=== PATIENT | male | born 1960 | race Caucasian/White ===

== ENCOUNTER 2016-08-31 10:20 | Emergency (ER) | payer OTHER ==
[2016-08-31 10:24] VITALS: TEMP 36.5; Ht 182.9 cm
[2016-08-31] MEDS ORDERED: DILT120C41 PO (10:41)
[2016-08-31] MEDS ORDERED: ESCI1TAB6 PO (10:43)
[2016-08-31] MEDS ORDERED: MELA3TAB PO (10:43)
[2016-08-31] MEDS ORDERED: PRLSR20 PO (10:43)
[2016-08-31] MEDS ORDERED: ASPCH81X PO (10:43)
[2016-08-31] MEDS ORDERED: SODIUM CHLORIDE 0.9% 1000ML 1,000 ML IV STA (10:51)
[2016-08-31 11:45] LABS: URINE APPEARANCE CLOUDY (CLEAR); URINE BILIRUBIN NEG (NEG); URINE COLOR YELLOW; URINE EPITHELIAL CELL AUTO 0-5 /lpf (0-5); URINE NITRITE NEG (NEG); URINE SPECIFIC GRAVITY 1.009 (1.000-1.030); UROBILINOGEN NEG (NEG); ZZUR CULT IF INDIC CLEAN CATCH NO
[2016-08-31 11:52] LABS: MANUAL MICROSCOPIC REQUIRED? NO; REVIEW REQ? NO
[2016-08-31 11:59] LABS: ALT/SGPT 26 U/L (12-78); BLOOD UREA NITROGEN 26 mg/dl (7-18); BUN/CREATININE RATIO 21.5 (10-20); CALCIUM 9.5 mg/dl (8.5-10.1); CARBON DIOXIDE 24 mmol/L (21-32); CHLORIDE 107 mmol/L (98-107); GLUCOSE 98 mg/dl (70-99); POTASSIUM 3.7 mmol/L (3.5-5.1); SODIUM 142 mmol/L (136-145)
[2016-08-31 12:06] LABS: BASO % 0.3 %; BASO ABS # 0.02 K/uL (0-0.2); COMPLETE YES; EOS % 1.3 %; HEMATOCRIT 38.8 % (42-52); IG% 0.2 %; LYMPH % 14.1 %; LYMPH ABS # 0.84 K/uL (1.2-3.4); MEAN CELL VOLUME 89.8 fL (80-100); MEAN CORPUSCULAR HEMOGLOBIN 33.1 pg (25-34); MEAN CORPUSCULAR HGB CONC 36.9 g/dl (32-36); MONO % 7.9 %; NEUT % 76.2 %; PLATELET COUNT 115 K/uL (130-400); PLT ESTIMATE DECREASED; RED BLOOD COUNT 4.32 M/uL (4.7-6.1); WHITE BLOOD COUNT 5.94 K/uL (4.8-10.8)
[2016-08-31 12:10] LABS: ALB/GLOB RATIO 1.4 (0.9-2); ALKALINE PHOSPHATASE 76 U/L (45-117); AST/SGOT 19 U/L (15-37)
[2016-08-31 12:42] LABS: LYME DISEASE AB IGG NEG (NEG); LYME DISEASE AB IGM NEG (NEG)
--- NOTE | 2016-08-31 14:10 | DIAGNOSTIC IMAGING REPORT ---
CT OF THE CHEST WITHOUT IV CONTRAST CLINICAL HISTORY: Cough. Weight loss. Weakness. COMPARISON STUDY: No previous studies for comparison. CT DOSE: 265.83 mGycm TECHNIQUE: Axial images of the chest were obtained without IV contrast. Images were reviewed in the axial, sagittal, and coronal planes. IV contrast was not administered for this examination. FINDINGS: No enlarged axillary, mediastinal or hilar lymph nodes are present. The size of the heart is normal. There is no pericardial effusion. The central airways are patent. There is no pneumothorax or pleural effusion. There are extensive tree-in-bud nodular densities throughout both lungs. Multifocal scarring is noted, most pronounced within the right apex and the lingula. No suspicious osseous lesions are present. The abdomen and pelvis will be reported separately. IMPRESSION: 1. Extensive multifocal tree-in-bud nodules throughout both lungs. The findings suggest an infectious or inflammatory etiology. An atypical mycobacterial infection could have this imaging appearance. 2. No thoracic lymphadenopathy. 3. Multifocal scarring within the lung. Electronically signed by: Low Vadlez M.D. 08/31/2016 2:07 PM Dictated Date/Time: 08/31/2016 1:58 PM
--- NOTE | 2016-08-31 14:14 | DIAGNOSTIC IMAGING REPORT ---
ABDOMEN AND PELVIS CT WITH ORAL CONTRAST CT DOSE: 979.77 mGycm HISTORY: Generalized abdominal pain. TECHNIQUE: Multiaxial CT images of the abdomen and pelvis were performed following the use of oral contrast. COMPARISON STUDY: None. FINDINGS: There are tree-in-bud nodular opacities at the lung bases. No pneumoperitoneum. No pneumatosis. No suspicious lytic or blastic osseous lesions. There is a small gallstone. No gallbladder wall thickening. The unenhanced liver, spleen, pancreas, and adrenal glands are within normal limits. Suspect punctate bilateral renal calculi. No hydronephrosis. No retroperitoneal lymphadenopathy. The bladder is unremarkable. No bowel wall thickening or obstruction. The appendix is reportedly surgically absent. IMPRESSION: 1. No bowel wall thickening or obstruction. 2. Cholelithiasis. 3. Suspect bilateral nephrolithiasis. No hydronephrosis. 4. Tree-in-bud nodular opacities seen at the lung bases. Electronically signed by: Syed Faulkner M.D. 08/31/2016 2:12 PM Dictated Date/Time: 08/31/2016 2:05 PM
--- NOTE | 2016-08-31 15:22 | EMERGENCY ROOM VISIT NOTE ---
History Report prepared by Benito: Gale Piper Under the Supervision of: Dr. Nelson Moran M.D. First contact with patient: 10:43 Chief Complaint: RECTAL PAIN Stated Complaint: WEAKNESS, BURNING GROIN Nursing Triage Summary: Pt c/o burning sensation in "butt and groin, for months, it just flares up sometimes." This time began 2 hours ago. Denies n/v/d. Denies blood in stool today. Pt states he is to have a CT done here today at noon for same symptoms but feels weak so came to ER. Has had rectal pain in past, but none recently. History of Present Illness The patient is a 56 year old male who presents to the Emergency Room with complaints of persistent burning penile and pelvic discomfort starting a few days ago. The patient also complains of diffuse abdominal pain which he describes to be a burning pain. He also reports generalized weakness. He notes a symptom intensity of 8/10. He has a history of similar symptoms occurring a few months ago. He denies nausea, vomiting, diarrhea, rectal bleeding, or any other complaints. He is supposed to have a CT scan today for concerns about generalized body aches and weight loss. He has lost about 20 pounds in the past few weeks. He used to spend a lot of time outside but has not been checked for Lyme's disease. Source of History: patient Onset: a few days ago Position: other (penis) Symptom Intensity: 8/10 Quality: burning Timing: other (persistent) Associated Symptoms: + abdominal pain, + weakness, No diarrhea, No nausea, No vomiting Review of Systems See HPI for pertinent positives & negatives. A total of 10 systems reviewed and were otherwise negative. Past Medical & Surgical Medical Problems: (1) Kidney disease Family History Cancer Social History Smoking Status: Former Smoker Marital Status: Occupation Status: disabled Current/Historical Medications Scheduled Aspirin (Aspirin Chewable), 81 MG PO DAILY Diltiazem Hcl (Dilt-Xr), 120 MG PO QAM Escitalopram Oxalate (Lexapro), 5 MG PO QAM Melatonin (Melatonin), 3 MG PO HS Omeprazole (Prilosec), 20 MG PO QAM Allergies Coded Allergies: Amoxicillin (Unverified Allergy, Unknown, GI UPSET, 08/31/16) CI Pigment Blue 63 (Unverified Allergy, Unknown, SHAKES/TREMORS, 08/31/16) Clavulanic Acid (Unverified Allergy, Unknown, GI UPSET, 08/31/16) Dabigatran (Unverified Allergy, Unknown, SHAKES/TREMORS, 08/31/16) Gabapentin (Unverified Allergy, Unknown, TOOK HEART OUT OF RHYTHM, 08/31/16 ) Iodinated Diagnostic Agents (Unverified Allergy, Unknown, BODY RASH, ) Lisinopril (Unverified Allergy, Unknown, KIDNEY ISSUES, 08/31/16) Olanzapine (Unverified Allergy, Unknown, SHAKES/TREMORS, 08/31/16) Rivaroxaban (Unverified Allergy, Unknown, BODY SHAKES/TREMORS, 08/31/16) Sertraline (Unverified Allergy, Unknown, BODY SHAKES/TREMORS, 08/31/16) Yellow Dye (Unverified Allergy, Unknown, SHAKES/TREMORS, 08/31/16) Zolpidem (Unverified Allergy, Unknown, PULSE RATE INCREASED, 08/31/16) Uncoded Allergies: ELIQUIS (Allergy, Unknown, BODY SHAKES/TREMORS, 08/31/16) Physical Exam Vital Signs Date Time Temp Pulse Resp B/P Pulse Ox O2 Delivery O2 Flow Rate FiO2 08/31/16 15:23 64 20 153/80 98 Room Air 08/31/16 14:35 61 16 154/83 08/31/16 13:45 60 20 155/79 98 Room Air 08/31/16 12:15 62 20 132/75 100 Room Air 08/31/16 11:31 Room Air 08/31/16 11:23 64 12 149/83 100 Room Air 70 152/86 79 128/72 08/31/16 11:08 61 08/31/16 10:24 36.5 62 16 144/77 99 Room Air Physical Exam GENERAL: Patient is in no acute distress. HEENT: No acute trauma, normocephalic atraumatic, mucous membranes moist, no nasal congestion, no scleral icterus. NECK: No stridor, no adenopathy, no meningismus, trachea is midline. LUNGS: Clear to auscultation bilaterally, no wheeze, no rhonchi, breath sounds equal. HEART: Without murmurs gallops or rubs, regular rate and rhythm. ABDOMEN: Soft, nontender, bowel sounds positive, no hernias, no peritonitis. : Circumcised. Testicles and scrotum appeared normal. No cellulitis or hernia appreciated. EXTREMITIES: No cyanosis or edema, full range of motion of all the joints without pain or difficulty, no signs for acute trauma. NEUROLOGIC: Oriented x 3, no acute motor or sensory deficits, no focal weakness. SKIN: No rash, no jaundice, no diaphoresis. Medical Decision & Procedures ER Provider Diagnostic Interpretation: CT results as stated below per my review and radiologist interpretation: ABDOMEN AND PELVIS CT WITH ORAL CONTRAST CT DOSE: 979.77 mGycm HISTORY: Generalized abdominal pain. TECHNIQUE: Multiaxial CT images of the abdomen and pelvis were performed following the use of oral contrast. COMPARISON STUDY: None. FINDINGS: There are tree-in-bud nodular opacities at the lung bases. No pneumoperitoneum. No pneumatosis. No suspicious lytic or blastic osseous lesions. There is a small gallstone. No gallbladder wall thickening. The unenhanced liver, spleen, pancreas, and adrenal glands are within normal limits. Suspect punctate bilateral renal calculi. No hydronephrosis. No retroperitoneal lymphadenopathy. The bladder is unremarkable. No bowel wall thickening or obstruction. The appendix is reportedly surgically absent. IMPRESSION: 1. No bowel wall thickening or obstruction. 2. Cholelithiasis. 3. Suspect bilateral nephrolithiasis. No hydronephrosis. 4. Tree-in-bud nodular opacities seen at the lung bases. Electronically signed by: Syed Faulkner M.D. 08/31/2016 2:12 PM Dictated Date/Time: 08/31/2016 2:[address] OF THE CHEST WITHOUT IV CONTRAST CLINICAL HISTORY: Cough. Weight loss. Weakness. COMPARISON STUDY: No previous studies for comparison. CT DOSE: 265.83 mGycm TECHNIQUE: Axial images of the chest were obtained without IV contrast. Images were reviewed in the axial, sagittal, and coronal planes. IV contrast was not administered for this examination. FINDINGS: No enlarged axillary, mediastinal or hilar lymph nodes are present. The size of the heart is normal. There is no pericardial effusion. The central airways are patent. There is no pneumothorax or pleural effusion. There are extensive tree-in-bud nodular densities throughout both lungs. Multifocal scarring is noted, most pronounced within the right apex and the lingula. No suspicious osseous lesions are present. The abdomen and pelvis will be reported separately. IMPRESSION: 1. Extensive multifocal tree-in-bud nodules throughout both lungs. The findings suggest an infectious or inflammatory etiology. An atypical mycobacterial infection could have this imaging appearance. 2. No thoracic lymphadenopathy. 3. Multifocal scarring within the lung. Electronically signed by: Low Valdez M.D. 08/31/2016 2:07 PM Dictated Date/Time: 08/31/2016 1:58 PM Laboratory Results 08/31/16 11:15 Red Blood Count 4.32, Mean Corpuscular Volume 89.8, Mean Corpuscular Hemoglobin 33.1, Mean Corpuscular Hemoglobin Concent 36.9, Neutrophils (%) (Auto) 76.2, Lymphocytes (%) (Auto) 14.1, Monocytes (%) (Auto) 7.9, Eosinophils (%) (Auto) 1.3, Basophils (%) (Auto) 0.3, Neutrophils # (Auto) 4.52, Lymphocytes # (Auto) 0.84, Monocytes # (Auto) 0.47, Eosinophils # (Auto) 0.08, Basophils # (Auto) 0.02 08/31/16 11:15 Test 08/31/16 11:15 White Blood Count 5.94 K/uL (4.8-10.8) Red Blood Count 4.32 M/uL (4.7-6.1) Hemoglobin 14.3 g/dL (14.0-18.0) Hematocrit 38.8 % (42-52) Mean Corpuscular Volume 89.8 fL (80-100) Mean Corpuscular Hemoglobin 33.1 pg (25-34) Mean Corpuscular Hemoglobin Concent 36.9 g/dl (32-36) Platelet Count 115 K/uL (130-400) Neutrophils (%) (Auto) 76.2 % Lymphocytes (%) (Auto) 14.1 % Monocytes (%) (Auto) 7.9 % Eosinophils (%) (Auto) 1.3 % Basophils (%) (Auto) 0.3 % Neutrophils # (Auto) 4.52 K/uL (1.4-6.5) Lymphocytes # (Auto) 0.84 K/uL (1.2-3.4) Monocytes # (Auto) 0.47 K/uL (0.11-0.59) Eosinophils # (Auto) 0.08 K/uL (0-0.5) Basophils # (Auto) 0.02 K/uL (0-0.2) Immature Granulocyte % (Auto) 0.2 % Immature Granulocyte # (Auto) 0.01 K/uL (0.00-0.02) Platelet Estimate DECREASED Urine Color YELLOW Urine Appearance CLOUDY (CLEAR) Urine pH 5.0 (4.5-7.5) Urine Specific [place] 1.009 (1.000-1.030) Urine Protein NEG (NEG) Urine Glucose (UA) NEG (NEG) Urine Ketones TRACE (NEG) Urine Occult Blood NEG (NEG) Urine Nitrite NEG (NEG) Urine Bilirubin NEG (NEG) Urine Urobilinogen NEG (NEG) Urine Leukocyte Esterase NEG (NEG) Urine WBC (Auto) 0 /hpf (0-5) Urine RBC (Auto) 0-4 /hpf (0-4) Urine Hyaline Casts (Auto) 1-5 /lpf (0-5) Urine Epithelial Cells (Auto) 0-5 /lpf (0-5) Urine Bacteria (Auto) NEG (NEG) Anion Gap 11.0 mmol/L (3-11) Estimated GFR () 77.3 Estimated GFR (Non- 66.7 BUN/Creatinine Ratio 21.5 (10-20) Calcium Level 9.5 mg/dl (8.5-10.1) Total Bilirubin 0.6 mg/dl (0.2-1) Aspartate Amino Transf (AST/SGOT) 19 U/L (15-37) Alanine Aminotransferase (ALT/SGPT) 26 U/L (12-78) Alkaline Phosphatase 76 U/L (45-117) Total Creatine Kinase 124 U/L (39-308) Troponin I < 0.015 ng/ml (0-0.045) Total Protein 7.7 gm/dl (6.4-8.2) Albumin 4.5 gm/dl (3.4-5.0) Globulin 3.2 gm/dl (2.5-4.0) Albumin/Globulin Ratio 1.4 (0.9-2) Thyroid Stimulating Hormone (TSH) 1.640 uIu/ml (0.300-4.500) Lyme Disease IgG Antibody NEG (NEG) Lyme Disease IgM Antibody NEG (NEG) Laboratory results reviewed by me. Medications Administered Medications (Trade) Dose Ordered Sig/Nery Route Start Time Stop Time Status Last Admin Dose Admin Sodium Chloride (Nss 1000ml) 1,000 ml @ 999 mls/hr Q1H1M STAT IV 08/31/16 10:51 08/31/16 11:51 DC 08/31/16 11:31 999 MLS/HR ECG Indication: abdominal pain Rate (beats per minute): 63 Rhythm: normal sinus, SVT Findings: no acute ischemic change, no ectopy ED Course 1043: The patient was evaluated in room C10. A complete history and physical exam was performed. 1051: Sodium Chloride 1000 ml @ 999 mls/hr IV 1205: Orthostatic vitals are positive. 1425: I discussed the patient's case with Dr. Whalen, cost specialist with [facility]. He will evaluate the patient and give me his recommendations. 1458: Dr. Whalen recommended discharging him home with follow up. 1503: Reevaluated the patient. Discussed results and discharge instructions: He verbalized understanding and agreement. The patient is ready for discharge. Medical Decision Differential diagnosis includes but is not limited to malignancy, anemia, electrolyte imbalance, renal failure, UTI, thyroid disorder, lyme disease. Consults Time Called: 1420 Consulting Physician: Dr. Whalen, cost specialist with [facility] Returned Call: [phone] I discussed the patient's case with Dr. Whalen, cost specialist with [facility]. He will evaluate the patient and give me his recommendations. Impression Primary Impression: Lower abdominal pain Additional Impressions: Weight loss Weakness Dehydration Scribe Attestation The scribe's documentation has been prepared under my direction and personally reviewed by me in its entirety. I confirm that the note above accurately reflects all work, treatment, procedures, and medical decision making performed by me. Departure Information Dispostion Home / Self-Care Referrals No Doctor, Assigned (PCP) Forms HOME CARE DOCUMENTATION FORM, IMPORTANT VISIT INFORMATION, WORK / SCHOOL INSTRUCTIONS Patient Instructions My [facility] Additional Instructions follow up as an outpt with Dr. Palomino and Dr. Whalen follow with your [facility] lab testing today was all ok stay well hydrated return if worsening Problem Qualifiers
[2016-08-31 15:23] VITALS: BP 153/80; PULSE 64; O2SAT 98
--- NOTE | 2016-08-31 16:54 | EMERGENCY ROOM VISIT NOTE ---
History Report prepared by Benito: Gale Piper Under the Supervision of: Dr. Nelson Moran M.D. First contact with patient: 10:43 Chief Complaint: RECTAL PAIN Stated Complaint: WEAKNESS, BURNING GROIN Nursing Triage Summary: Pt c/o burning sensation in "butt and groin, for months, it just flares up sometimes." This time began 2 hours ago. Denies n/v/d. Denies blood in stool today. Pt states he is to have a CT done here today at noon for same symptoms but feels weak so came to ER. Has had rectal pain in past, but none recently. History of Present Illness The patient is a 56 year old male who presents to the Emergency Room with complaints of persistent bilateral groin discomfort starting about 3-4 days ago. About 3-4 months ago, he started having intermittent penile discomfort which resolved. A few days ago, he started having similar penile discomfort again. He also complains of diffuse abdominal pain radiating to his bilateral flank area. He also reports weakness. Last week, he had some trouble with urination which has resolved. He denies fevers, chills, cough, problems with bowel movement, or any other complaints. He denies any personal history of cancer. He has been having issues with kidney function for the past year. The patient is supposed to receive a CT scan today due to concerns about weight loss. He has lost about 15-20 pounds in the past few months. The patient used to spend a lot of time outside. He has not been checked for Lyme's disease. Source of History: patient Onset: about 3-4 days ago Position: other (bilateral groin) Timing: other (persistent) Associated Symptoms: + abdominal pain, + weakness, No chills, No cough, No fevers Review of Systems See HPI for pertinent positives & negatives. A total of 10 systems reviewed and were otherwise negative. Past Medical & Surgical Medical Problems: (1) Kidney disease Family History Cancer Social History Smoking Status: Former Smoker Marital Status: Occupation Status: disabled Current/Historical Medications Scheduled Aspirin (Aspirin Chewable), 81 MG PO DAILY Diltiazem Hcl (Dilt-Xr), 120 MG PO QAM Escitalopram Oxalate (Lexapro), 5 MG PO QAM Melatonin (Melatonin), 3 MG PO HS Omeprazole (Prilosec), 20 MG PO QAM Allergies Coded Allergies: Amoxicillin (Unverified Allergy, Unknown, GI UPSET, 08/31/16) CI Pigment Blue 63 (Unverified Allergy, Unknown, SHAKES/TREMORS, 08/31/16) Clavulanic Acid (Unverified Allergy, Unknown, GI UPSET, 08/31/16) Dabigatran (Unverified Allergy, Unknown, SHAKES/TREMORS, 08/31/16) Gabapentin (Unverified Allergy, Unknown, TOOK HEART OUT OF RHYTHM, 08/31/16 ) Iodinated Diagnostic Agents (Unverified Allergy, Unknown, BODY RASH, ) Lisinopril (Unverified Allergy, Unknown, KIDNEY ISSUES, 08/31/16) Olanzapine (Unverified Allergy, Unknown, SHAKES/TREMORS, 08/31/16) Rivaroxaban (Unverified Allergy, Unknown, BODY SHAKES/TREMORS, 08/31/16) Sertraline (Unverified Allergy, Unknown, BODY SHAKES/TREMORS, 08/31/16) Yellow Dye (Unverified Allergy, Unknown, SHAKES/TREMORS, 08/31/16) Zolpidem (Unverified Allergy, Unknown, PULSE RATE INCREASED, 08/31/16) Uncoded Allergies: ELIQUIS (Allergy, Unknown, BODY SHAKES/TREMORS, 08/31/16) Physical Exam Vital Signs Date Time Temp Pulse Resp B/P Pulse Ox O2 Delivery O2 Flow Rate FiO2 08/31/16 15:23 64 20 153/80 98 Room Air 08/31/16 14:35 61 16 154/83 08/31/16 13:45 60 20 155/79 98 Room Air 08/31/16 12:15 62 20 132/75 100 Room Air 08/31/16 11:31 Room Air 08/31/16 11:23 64 12 149/83 100 Room Air 70 152/86 79 128/72 08/31/16 11:08 61 08/31/16 10:24 36.5 62 16 144/77 99 Room Air Physical Exam GENERAL: Patient is in no acute distress. HEENT: No acute trauma, normocephalic atraumatic, mucous membranes moist, no nasal congestion, no scleral icterus. NECK: No stridor, no adenopathy, no meningismus, trachea is midline. LUNGS: Clear to auscultation bilaterally, no wheeze, no rhonchi, breath sounds equal. HEART: Without murmurs gallops or rubs, regular rate and rhythm. ABDOMEN: Soft, nontender, bowel sounds positive, no hernias, no peritonitis. GROIN: Circumcised, normal penis and testicles on exam, no obvious hernia. EXTREMITIES: No cyanosis or edema, full range of motion of all the joints without pain or difficulty, no signs for acute trauma. NEUROLOGIC: Oriented x 3, no acute motor or sensory deficits, no focal weakness. SKIN: No rash, no jaundice, no diaphoresis. Medical Decision & Procedures ER Provider Diagnostic Interpretation: CT results as stated below per my review and radiologist interpretation: ABDOMEN AND PELVIS CT WITH ORAL CONTRAST CT DOSE: 979.77 mGycm HISTORY: Generalized abdominal pain. TECHNIQUE: Multiaxial CT images of the abdomen and pelvis were performed following the use of oral contrast. COMPARISON STUDY: None. FINDINGS: There are tree-in-bud nodular opacities at the lung bases. No pneumoperitoneum. No pneumatosis. No suspicious lytic or blastic osseous lesions. There is a small gallstone. No gallbladder wall thickening. The unenhanced liver, spleen, pancreas, and adrenal glands are within normal limits. Suspect punctate bilateral renal calculi. No hydronephrosis. No retroperitoneal lymphadenopathy. The bladder is unremarkable. No bowel wall thickening or obstruction. The appendix is reportedly surgically absent. IMPRESSION: 1. No bowel wall thickening or obstruction. 2. Cholelithiasis. 3. Suspect bilateral nephrolithiasis. No hydronephrosis. 4. Tree-in-bud nodular opacities seen at the lung bases. Electronically signed by: Syed Faulkner M.D. 08/31/2016 2:12 PM Dictated Date/Time: 08/31/2016 2:[address] OF THE CHEST WITHOUT IV CONTRAST CLINICAL HISTORY: Cough. Weight loss. Weakness. COMPARISON STUDY: No previous studies for comparison. CT DOSE: 265.83 mGycm TECHNIQUE: Axial images of the chest were obtained without IV contrast. Images were reviewed in the axial, sagittal, and coronal planes. IV contrast was not administered for this examination. FINDINGS: No enlarged axillary, mediastinal or hilar lymph nodes are present. The size of the heart is normal. There is no pericardial effusion. The central airways are patent. There is no pneumothorax or pleural effusion. There are extensive tree-in-bud nodular densities throughout both lungs. Multifocal scarring is noted, most pronounced within the right apex and the lingula. No suspicious osseous lesions are present. The abdomen and pelvis will be reported separately. IMPRESSION: 1. Extensive multifocal tree-in-bud nodules throughout both lungs. The findings suggest an infectious or inflammatory etiology. An atypical mycobacterial infection could have this imaging appearance. 2. No thoracic lymphadenopathy. 3. Multifocal scarring within the lung. Electronically signed by: Low Valdez M.D. 08/31/2016 2:07 PM Dictated Date/Time: 08/31/2016 1:58 PM Laboratory Results 08/31/16 11:15 Red Blood Count 4.32, Mean Corpuscular Volume 89.8, Mean Corpuscular Hemoglobin 33.1, Mean Corpuscular Hemoglobin Concent 36.9, Neutrophils (%) (Auto) 76.2, Lymphocytes (%) (Auto) 14.1, Monocytes (%) (Auto) 7.9, Eosinophils (%) (Auto) 1.3, Basophils (%) (Auto) 0.3, Neutrophils # (Auto) 4.52, Lymphocytes # (Auto) 0.84, Monocytes # (Auto) 0.47, Eosinophils # (Auto) 0.08, Basophils # (Auto) 0.02 08/31/16 11:15 Test 08/31/16 11:15 White Blood Count 5.94 K/uL (4.8-10.8) Red Blood Count 4.32 M/uL (4.7-6.1) Hemoglobin 14.3 g/dL (14.0-18.0) Hematocrit 38.8 % (42-52) Mean Corpuscular Volume 89.8 fL (80-100) Mean Corpuscular Hemoglobin 33.1 pg (25-34) Mean Corpuscular Hemoglobin Concent 36.9 g/dl (32-36) Platelet Count 115 K/uL (130-400) Neutrophils (%) (Auto) 76.2 % Lymphocytes (%) (Auto) 14.1 % Monocytes (%) (Auto) 7.9 % Eosinophils (%) (Auto) 1.3 % Basophils (%) (Auto) 0.3 % Neutrophils # (Auto) 4.52 K/uL (1.4-6.5) Lymphocytes # (Auto) 0.84 K/uL (1.2-3.4) Monocytes # (Auto) 0.47 K/uL (0.11-0.59) Eosinophils # (Auto) 0.08 K/uL (0-0.5) Basophils # (Auto) 0.02 K/uL (0-0.2) Immature Granulocyte % (Auto) 0.2 % Immature Granulocyte # (Auto) 0.01 K/uL (0.00-0.02) Platelet Estimate DECREASED Urine Color YELLOW Urine Appearance CLOUDY (CLEAR) Urine pH 5.0 (4.5-7.5) Urine Specific [place] 1.009 (1.000-1.030) Urine Protein NEG (NEG) Urine Glucose (UA) NEG (NEG) Urine Ketones TRACE (NEG) Urine Occult Blood NEG (NEG) Urine Nitrite NEG (NEG) Urine Bilirubin NEG (NEG) Urine Urobilinogen NEG (NEG) Urine Leukocyte Esterase NEG (NEG) Urine WBC (Auto) 0 /hpf (0-5) Urine RBC (Auto) 0-4 /hpf (0-4) Urine Hyaline Casts (Auto) 1-5 /lpf (0-5) Urine Epithelial Cells (Auto) 0-5 /lpf (0-5) Urine Bacteria (Auto) NEG (NEG) Anion Gap 11.0 mmol/L (3-11) Estimated GFR () 77.3 Estimated GFR (Non- 66.7 BUN/Creatinine Ratio 21.5 (10-20) Calcium Level 9.5 mg/dl (8.5-10.1) Total Bilirubin 0.6 mg/dl (0.2-1) Aspartate Amino Transf (AST/SGOT) 19 U/L (15-37) Alanine Aminotransferase (ALT/SGPT) 26 U/L (12-78) Alkaline Phosphatase 76 U/L (45-117) Total Creatine Kinase 124 U/L (39-308) Troponin I < 0.015 ng/ml (0-0.045) Total Protein 7.7 gm/dl (6.4-8.2) Albumin 4.5 gm/dl (3.4-5.0) Globulin 3.2 gm/dl (2.5-4.0) Albumin/Globulin Ratio 1.4 (0.9-2) Thyroid Stimulating Hormone (TSH) 1.640 uIu/ml (0.300-4.500) Lyme Disease IgG Antibody NEG (NEG) Lyme Disease IgM Antibody NEG (NEG) Laboratory results reviewed by me. Medications Administered Medications (Trade) Dose Ordered Sig/Nery Route Start Time Stop Time Status Last Admin Dose Admin Sodium Chloride (Nss 1000ml) 1,000 ml @ 999 mls/hr Q1H1M STAT IV 08/31/16 10:51 08/31/16 11:51 DC 08/31/16 11:31 999 MLS/HR ECG Indication: abdominal pain Rate (beats per minute): 63 Rhythm: normal sinus Findings: no acute ischemic change, no ectopy ED Course 1043: The patient was evaluated in room C10. A complete history and physical exam was performed. 1051: Sodium Chloride 1000 ml @ 999 mls/hr IV 1205: Orthostatic vitals are positive. 1425: I discussed the patient's case with Dr. Whalen, plate straightener with [facility]. He will evaluate the patient and give me his recommendations. 1458: Dr. Whalen recommended discharging him home with follow up. 1503: Reevaluated the patient. Discussed results and discharge instructions: He verbalized understanding and agreement. The patient is ready for discharge. Medical Decision Differential diagnosis includes but is not limited to viral illness, malignancy , lyme's disease, anemia, electrolyte imbalance, thyroid disorder, diverticulitis, UTI, hernia. There is no leukocytosis or concerning anemia. No significant electrolyte abnormality, kidney failure, hepatitis or pancreatitis. The patient appears to be in a euthyroid state. Urinalysis does not show infection. Lyme disease testing is negative. Chest CT shows a diffuse nodular pattern consistent with possible infection versus even TB. Follow up with pulmonology was suggested. Abdominal and pelvis CT does not show any malignancy, there is no acute surgical process within the abdomen or pelvis. EKG shows a sinus rhythm, no acute ischemia. Cardiac enzyme testing 1 is not suggestive of acute cardiac injury. The patient received IV saline for hydration. He was orthostatic initially upon arrival, his blood pressure did drop with standing. Patient is now eating a meal, he is not toxic or febrile, he is in no significant distress. The on-call plate straightener talked with the patient and feels the patient can be seen as an outpatient. He is going to be scheduled for an outpatient follow-up appointment. No antibiotics to be started right now. I talked about all my findings with the patient. The patient is being discharged with continued outpatient follow-up. He will also be following with the floral designer oncologist who recommended his CT scans. The cause for all his symptoms is unclear. Consults Time Called: 1420 Consulting Physician: Dr. Whalen, plate straightener with [facility] Returned Call: [phone] I discussed the patient's case with Dr. Whalen, plate straightener with [facility]. He will evaluate the patient and give me his recommendations. Impression Primary Impression: Weakness Additional Impressions: Lower abdominal pain Weight loss Scribe Attestation The scribe's documentation has been prepared under my direction and personally reviewed by me in its entirety. I confirm that the note above accurately reflects all work, treatment, procedures, and medical decision making performed by me. Departure Information Dispostion Home / Self-Care Referrals No Doctor, Assigned (PCP) Forms HOME CARE DOCUMENTATION FORM, IMPORTANT VISIT INFORMATION, WORK / SCHOOL INSTRUCTIONS Patient Instructions My [facility] Additional Instructions follow up as an outpt with Dr. Palomino and Dr. Whalen follow with your [facility] lab testing today was all ok stay well hydrated return if worsening Problem Qualifiers
== END 2016-08-31 15:27 | disposition home or self-care (01) ==
LOC: EDBD 10:25 → C.EDB 10:25 → MERGE 10:25 → C.EDC 15:27
DX: R53.1 Weakness (principal); R10.30 Lower abdominal pain, unspecified; R63.4 Abnormal weight loss; Z87.891 Personal history of nicotine dependence

== ENCOUNTER → 2016-09-24 | Day surgery (SDC) | payer OTHER ==
--- NOTE | 2016-09-23 16:25 | History and Physical ---
History & Physical Date Sep 23, 2016. Chief Complaint Diffuse GGO on CT thorax History of Present Illness The patient is a 56 year old male with complaints of 56-year-old gentleman initially evaluated in the emergency room and here for follow-up on progressive weight loss with abnormal CT scan: 49-year-old male presented to the emergency room on 08/31/2016 with bilateral groin discomfort starting 3-4 days prior. He had also complained of intermittent penile discomfort. The patient has been noted to have 15-20 pound weight loss over the last 6-8 months progressive weakness and difficulty with urination with chronic renal insufficiency. He was being worked up by Hematology Oncolog [address] scan was obtained in noted diffuse abnormal ground-glass and tree-in-bud changes. Was then sent to the emergency room where he was noted to be hemodynamically stable and I performed a quick 10 minutes interview and asked him to follow up in this clinic. The patient continues to complain about pelvic/groin and continued dyspnea on exertion but denies: Fever, chills, pleurisy, cardiac chest pain, productive cough, dry cough, lymphadenopathy, diarrhea or nausea and vomiting. I was able to review the patient's previous radiological examinations: 1. Noncontrast CT thorax 07/14/2011: Diffuse extensive bilateral airspace opacifications in the upper mid lung zones with bilateral pleural effusions 2. Coronary angiography 03/30/2016: Study reviewed but unable to evaluate pulmonary parenchyma 3. CT abdomen pelvis 04/21/2016: Nonspecific tree-in-bud opacifications noted at the lung bases 4. Noncontrast CT 08/31/2016: Diffuse tree-in-bud and ground-glass changes mostly in the lower and middle lobes as well as bronchiectasis appreciated with no noted mediastinal or axillary lymphadenopathy. Date: 05/28/2016 PRE FEV1/FVC: 75 FEV1: 3.09/81 % FVC: 4.11/82 % 25-27%: 72 % T.24/125 % VC: 3.04/61 % RV: 6.17/258 % FRC: 6.84/188 % DLCO: 68 % DLCO/VA: 82 % Past Medical/Surgical History Medical Problems: (1) Kidney disease Additional History Hepatic Disease: No Endocrine Disorder: No Kidney Disease: No Hypertension: No Heart Disease: No Bleeding Tendencies: No Infectious Diseases: No Allergies Coded Allergies: Amoxicillin (Unverified Allergy, Unknown, GI UPSET, 08/31/16) CI Pigment Blue 63 (Unverified Allergy, Unknown, SHAKES/TREMORS, 08/31/16) Clavulanic Acid (Unverified Allergy, Unknown, GI UPSET, 08/31/16) Dabigatran (Unverified Allergy, Unknown, SHAKES/TREMORS, 08/31/16) Gabapentin (Unverified Allergy, Unknown, TOOK HEART OUT OF RHYTHM, 08/31/16 ) Iodinated Diagnostic Agents (Unverified Allergy, Unknown, BODY RASH, ) Lisinopril (Unverified Allergy, Unknown, KIDNEY ISSUES, 08/31/16) Olanzapine (Unverified Allergy, Unknown, SHAKES/TREMORS, 08/31/16) Rivaroxaban (Unverified Allergy, Unknown, BODY SHAKES/TREMORS, 08/31/16) Sertraline (Unverified Allergy, Unknown, BODY SHAKES/TREMORS, 08/31/16) Yellow Dye (Unverified Allergy, Unknown, SHAKES/TREMORS, 08/31/16) Zolpidem (Unverified Allergy, Unknown, PULSE RATE INCREASED, 08/31/16) Uncoded Allergies: ELIQUIS (Allergy, Unknown, BODY SHAKES/TREMORS, 08/31/16) Home Medications Scheduled Aspirin (Aspirin Chewable), 81 MG PO DAILY Diltiazem Hcl (Dilt-Xr), 120 MG PO QAM Escitalopram Oxalate (Lexapro), 5 MG PO QAM Melatonin (Melatonin), 3 MG PO HS Omeprazole (Prilosec), 20 MG PO QAM Physical Examination Skin: warm/dry, no rash Eyes: normal inspection, EOMI, sclerae normal ENT: normal ENT inspection, pharynx normal Head: normocephalic, atraumatic Neck: supple, no adenopathy, trachea midline Respiratory/Chest: lungs clear, normal breath sounds, no respiratory distress Cardiovascular: regular rate, rhythm, no edema, no murmur Abdomen / GI: normal bowel sounds, non tender Back: normal inspection Extremities: normal inspection, normal range of motion Genitourinary - Male: normal male genitalia, normal phallus, normal testicles Neurologic/Psych: no motor/sensory deficits, alert, normal reflexes, oriented x 3 Diagnosis GGO nodules ASA Classification: ASA Class I Plan of Treatment Bronchoscopy with BAL
[~2016-09-24] VITALS: Ht 182.9 cm; Wt 79.5 kg
[2016-09-24] VITALS (16 sets, daily range): BP systolic 125–171; BP diastolic 67–90; PULSE 57–70; TEMP 36.5–36.8; O2SAT 98–100; Ht 182.9 cm; Wt 79.5 kg
[~2016-09-24] MED LIST: ASPCH81X PO; DILT120C41 PO; ESCI1TAB6 PO; FENTANYL CITRATE INJ 50 MCG/1 ML 2 ML VIAL IV ONE; LEVALBUTEROL 1.25MG/3ML NEB INH ONE; LIDOCAINE 4% W/AFRIN NASAL SOLN 4ML ONE; LIDOCAINE HCL 2% LOCAL 50ML VIAL INFIL ONE; MELA3TAB PO; MIDAZOLAM HCL 5 MG/ML 1 ML VIAL IV ONE; NURSING VERBAL MED ORDER ONE; PRLSR20 PO
--- NOTE | 2016-09-24 07:32 | Procedure Note ---
Pre-Mod Sedation Assessment General Date of Moderate Sedation: Sep 24, 2016. Review Airway Class: I Pre-Sedation Airway Assessment Smoking Status: Former Smoker Mallampati Classification: Class I ASA Classification: Class I Procedure Planning Contraindications-for Mod Sed: None Yes Notes The planned sedation has been discussed with the patient and consent obtained. I have identified the patient, determined the appropriateness of sedation and have assessed the patient immediately prior to the procedure. All medicine(s) and interventions are by my order.
--- NOTE | 2016-09-24 07:32 | History & Physical Bridge Note ---
H&P Re-Evaluation Bridge Note: I have examined the patient, reviewed the History & Physical and in the interval since the performance of the History & Physical I have noted the following changes of clinical significance: No changes noted
[2016-09-24 09:22] LABS: BASO % 0.4 %; BASO ABS # 0.02 K/uL (0-0.2); COMPLETE YES; EOS % 1.6 %; IG% 0.2 %; LARGE PLATELETS 1+; LYMPH % 13.8 %; LYMPH ABS # 0.76 K/uL (1.2-3.4); MEAN CELL VOLUME 92.7 fL (80-100); MEAN CORPUSCULAR HEMOGLOBIN 33.2 pg (25-34); MEAN CORPUSCULAR HGB CONC 35.8 g/dl (32-36); MEAN PLATELET VOLUME 12.9 fL (7.4-10.4); MONO % 8.2 %; NEUT % 75.8 %; PLATELET COUNT 105 K/uL (130-400); PLT ESTIMATE DECREASED; SPHEROCYTE 1+; WHITE BLOOD COUNT 5.51 K/uL (4.8-10.8)
--- NOTE | 2016-09-24 11:09 | Discharge Instructions ---
Discharge Instructions Admission Reason for Admission: Pulmonary Nodules Discharge Discharge Diagnosis / Problem: Pulmonary nodules Discharge Goals Goal(s): Diagnostic testing Activity Recommendations Activity Limitations: resume your previous activity . Current Hospital Diet Patient's current hospital diet: Discharge Diet Recommended Diet: Regular Diet Procedures Procedures Performed: Bronchoscopy Pending Studies Studies pending at discharge: yes List of pending studies: Bronchoscopy washings Medical Emergencies . Who to Call and When: Medical Emergencies: If at any time you feel your situation is an emergency, please call 911 immediately. . Non-Emergent Contact Non-Emergency issues call your: Primary Care Provider . . "Provider Documentation" section prepared by Edwin Cast PA-C. VTE Core Measure Inpt VTE Proph given/why not?: Treatment not indicated (Outpatient procedure.)
--- NOTE | 2016-09-24 11:46 | OPERATIVE REPORT ---
DATE OF OPERATION: 09/24/2016 TIME: 929. PROCEDURE: Fiberoptic bronchoscopy without transbronchial biopsy. INDICATIONS: Persistent ground-glass opacities in a patient with chronic cough and remote smoking history. ANESTHESIA PREOPERATIVELY: None. ANESTHESIA DURING PROCEDURE: 5 mg IV Versed, 50 mcg IV fentanyl, 20 mL 2% Xylocaine spray above and below the cords, 4% viscous Xylocaine intranasally. PROCEDURE IN DETAIL: Fiberoptic bronchoscope was inserted through right naris with minimal difficulty and passed to the level of the true vocal cords. The cords appeared to approximate normally with phonation, without evidence for lesions or paralysis. The cords were anesthetized with 2% Xylocaine spray. The scope was then introduced in the trachea and right and left tracheobronchial tree. The yomaira was sharp. The left main stem bronchus was explored initially and no endobronchial lesions were seen. Left upper lobe, the apical, posterior and anterior segments, lingular subdivision, left lower lobe were found to be free of endobronchial lesions down to the subsegmental bronchi. The right tracheobronchial tree was explored and no endobronchial lesion was seen. The right upper lobe, the apical, posterior and anterior segments, bronchus intermedius, right middle lobe, the medial and lateral segments, and all basal segments of right lower lobe were found to be free of endobronchial lesions. The right lower lobe was copiously lavaged with Normosol and the mucopurulent secretion was lavaged and aspirated until clear. Distally in one of the subsegments of the superior segment of right lower lobe, there may have been a mild nodular density that I could not approximate with the scope due to the small orifice size of that subsegmental bronchus. I brushed from a distance the lesion twice with a minimal amount of bleeding which abated spontaneously. The area was copiously lavaged with Normosol and the aspirate sent for appropriate studies. The patient tolerated the procedure well and no biopsies were attempted. Surgical procedure was terminated. The patient was given a nebulizer treatment with Xopenex 1.25 mg, then transferred to the medical treatment unit hemodynamically stable with no signs of respiratory compromise. We will await microbiological and cytologic examination of the bronchial washing. I attest to the content of the Intraoperative Record and any orders documented therein. Any exceptio ns are noted below.
[2016-10-18 13:22] LABS: HERPES SIMPLEX CULT SOURCE RESPIRATORY-RLL BRON; HERPES SIMPLEX VIRUS CULT NOT ISOLATED (NOT ISOLATED)
== END | disposition home or self-care (01) ==
LOC: C.ACU 08:18
PROVIDERS: ATTEND Internal Medicine Pulmonary Disease
DX: R05 Cough (principal); Z87.891 Personal history of nicotine dependence; R63.4 Abnormal weight loss; R91.8 Other nonspecific abnormal finding of lung field

== ENCOUNTER → 2016-09-26 | Outpatient (CLI) | payer OTHER ==
[~2016-09-26] MED LIST changes: -ESCI1TAB6 PO; -FENTANYL CITRATE INJ 50 MCG/1 ML 2 ML VIAL IV ONE; -LEVALBUTEROL 1.25MG/3ML NEB INH ONE; -LIDOCAINE 4% W/AFRIN NASAL SOLN 4ML ONE; -LIDOCAINE HCL 2% LOCAL 50ML VIAL INFIL ONE; -MIDAZOLAM HCL 5 MG/ML 1 ML VIAL IV ONE; -NURSING VERBAL MED ORDER ONE
[2016-10-02 14:33] LABS: ASPERGILLUS FLAVUS Negative (Negative); ASPERGILLUS FUMIGATUS Negative (Negative); ASPERGILLUS NIGER Negative (Negative); QUANTIF TB AG-NIL <0.00 IU/ML; QUANTIFERON NIL 0.05 IU/ML
== END | disposition home or self-care (01) ==
LOC: C.LAB1850 11:50
PROVIDERS: ATTEND Internal Medicine Infectious Disease
DX: J18.9 Pneumonia, unspecified organism (principal)

== ENCOUNTER → 2017-06-03 | Outpatient (CLI) | payer OTHER | END | disposition home or self-care (01) | LOC: C.LAB 12:48 | PROVIDERS: ATTEND Urology | DX: N40.1 Benign prostatic hyperplasia with lower urinary tract symptoms (principal); N13.9 Obstructive and reflux uropathy, unspecified ==